=== PATIENT | male | born 1945 | race Caucasian/White ===

== ENCOUNTER 2024-09-22 17:18 | Emergency (ER) | payer MEDICARE, OTHER ==
[2024-09-22 18:08] LABS: #Basophils 0.03 10x3/uL (0.0-0.2); #Monocytes 1.28 10x3/uL (0.0-1.1); %Basophils 0.2 % (0.0-2.0); %Eosinophils 0.8 % (0.0-6.0); %Lymphocytes 24.8 % (18.0-47.0); %Monocytes 10.4 % (0.0-10.0); %Neutrophils 63.4 % (40.0-75.0); Hematocrit 42.2 % (38.8-50.0); Hemoglobin 14.3 g/dL (13.5-17.5); Mean Corpuscular HGB CONC 33.9 g/dL (32.0-36.0); Mean Corpuscular Hemoglobin 33.6 pg (27.0-33.0); Mean Corpuscular Volume 99.3 fL (81.2-95.1); Mean Platelet Volume 9.5 fL (7.4-10.4); Platelet Count 263 10x3/uL (150-450); Red Blood Cell (RBC) Count 4.25 10x6/uL (4.32-5.72); White Blood Cell (WBC) Count 12.3 10x3/uL (3.5-10.5)
[2024-09-22 18:15] LABS: ALT (SGPT) 13 U/L (8-55); AST (SGOT) 13 U/L (5-34); Alkaline Phosphatase 129 U/L (40-110); Anion Gap 17 mmol/L (10-20); BUN (Urea Nitrogen) 11 mg/dL (8.4-25.7); Bilirubin, Total 1.2 mg/dL (0.2-1.2); Calc. Creatinine Clearance 0 mL/min (70-130); Calcium 9.8 mg/dL (7.8-10.44); Carbon Dioxide 26 mmol/L (23-31); Chloride 99 mmol/L (98-107); Estimated GFR 89; Globulin 3.3 g/dL (2.4-3.5); Glucose 105 mg/dL (83-110); Potassium 4.2 mmol/L (3.5-5.1); Protein, Total 7.3 g/dL (5.8-8.1); Sodium 138 mmol/L (136-145)
[2024-09-22 18:21] LABS: Troponin I Less than 0.010 ng/mL (< 0.028)
[2024-09-22] MEDS ORDERED: Famotidine 20 MG TAB ONE (21:21)
[2024-09-22] MEDS ORDERED: Methocarbamol 500 MG TAB ONE (21:22)
== END 2024-09-23 07:14 | disposition short-term general hospital (02) ==
LOC: CSHERS 17:18
DX: R55 Syncope and collapse (principal); M79.642 Pain in left hand; I48.91 Unspecified atrial fibrillation; I10 Essential (primary) hypertension; W19.XXXA Unspecified fall, initial encounter; Z79.899 Other long term (current) drug therapy
CPT/HCPCS: 36415; 71045; 80053; 83880; 84484; 85025; 93005; 99285